=== PATIENT | female | born 1975 | race Caucasian/White ===

== ENCOUNTER 2019-08-06 13:44 | Outpatient (CLI) | payer MEDICARE ==
[~2019-08-06 13:44] MED LIST: ALBU18HF; IBUP-1623; ZPACK
== END 2019-08-06 23:59 | disposition home or self-care (01) ==
LOC: CFH 13:44
PROVIDERS: ATTEND Nurse Practitioner Family
DX: R59.0 Localized enlarged lymph nodes (principal)
CPT/HCPCS: 76857